=== PATIENT | male | born 2000 ===

== ENCOUNTER 2024-05-16 19:33 | Emergency (ER) | payer SELFPAY ==
[~2024-05-16] VITALS: Ht 170.2 cm; Wt 87.7 kg
[2024-05-16 19:33] VITALS: BP 131/72; TEMP 97.8; O2SAT 97
[2024-05-16] MEDS ORDERED: ZYRTTAB8 PO (19:54)
== END 2024-05-16 23:10 | disposition left against medical advice (07) ==
LOC: M ED 19:33
DX: Z53.21 Procedure and treatment not carried out due to patient leaving prior to being seen by health care provider (principal)